=== PATIENT | female | born 1985 | race African-American/Black ===

== ENCOUNTER 2019-06-19 12:39 | Inpatient (IN) | payer BC ==
[~2019-06-19] VITALS: Ht 180.3 cm; Wt 74.8 kg
[2019-06-19 12:49] VITALS: BP 119/78
--- NOTE | 2019-06-19 12:57 | NUR ---
PT TAKEN TO BED 1.
--- NOTE | 2019-06-19 13:15 | NUR ---
DR. GUEVARA EVALUATING PT AT BEDSIDE.
--- NOTE | 2019-06-19 13:26 | NUR ---
C/O HEMMORHAGE X SATURDAY. PT REPORTS "GUSHING" BAUDILIO RED BLOOD, WITH FOUL SMELL AND CLOTS, 1 PAD Q2 HOURS. + DIZZY AND FATIGUE. PT REPORTS THIS IS THE 3RD TIME SINCE ON 04/30/19. DENIES PAIN. PT STATES SHE WANTS SONOHISTAGRAM OR HYSTEROSCOPY. REFERRED HERE BY DR. BARCLAY (OB). MEDHX:LUPUS RX:IBUPROFEN 600MG, HYDROXYQU 400MG, ZOLOFT 50MG, VITAMINS, MICRONOR 0.35MG
[2019-06-19] MEDS ORDERED: NACL 0.9% 1,000 ML IV ONE (13:40)
--- NOTE | 2019-06-19 13:54 | NUR ---
LABS DRAWN AND HANDED TO [employer].
[2019-06-19 14:09] LABS: BASOPHILS % (AUTO) 1.2 % (0.0-2.0); EOSINOPHILS # (AUTO) 0.1 K/uL (0-0.4); HEMATOCRIT 33.5 % (36-48); HEMOGLOBIN 10.9 g/dL (12.0-16.0); LYMPHOCYTES # (AUTO) 1.4 K/uL (2.5-16.5); LYMPHOCYTES % (AUTO) 39.7 % (20.5-51.1); MEAN CORPUSCULAR HEMOGLOBIN 29 pg (27-31); MEAN CORPUSCULAR HGB CONC 33 g/dL (33-37); MEAN CORPUSCULAR VOLUME 89.8 fL (80-94); MONOCYTES # (AUTO) 0.5 K/uL (0.8-1.0); MONOCYTES % (AUTO) 14.4 % (1.7-9.3); NEUTROPHILS # (AUTO) 1.4 K/uL (1.8-7.7); NEUTROPHILS % (AUTO) 41.7 % (42.2-75.2); PLATELET COUNT (AUTO) 179 K/uL (140-450); RED BLOOD CELL COUNT(AUTO) 3.72 MIL/uL (4.20-5.40); RED CELL DISTRIBUTION WIDTH 14.4 % (11.6-13.7); WHITE BLOOD COUNT (AUTO) 3.5 K/uL (4.8-10.8)
[2019-06-19 14:28] LABS: PROTHROMBIN TIME 11.2 secs (10.8-13.4)
--- NOTE | 2019-06-19 14:42 | NUR ---
US TECH AT BEDSIDE.
[2019-06-19 15:04] LABS: ANION GAP 12.8 (8-16); CARBON DIOXIDE 27.1 mmol/L (21-32); CREATININE 1.3 mg/dL (0.6-1.3); POTASSIUM 3.9 mmol/L (3.5-5.1); TOTAL BILIRUBIN 0.7 mg/dL (0.0-1.0)
--- NOTE | 2019-06-19 15:04 | NUR ---
PT RESTING IN BED WITH FAMILY AT BEDSIDE. DENIES PAIN. VSS.
[2019-06-19 15:05] LABS: ALBUMIN 3.7 g/dL (3.4-5.0)
[2019-06-19] MEDS ORDERED: PREN-380 PO (15:52)
[2019-06-19] MEDS ORDERED: SERT50TA PO (15:52)
[2019-06-19] MEDS ORDERED: MICRONOR PO (15:53)
[2019-06-19] MEDS ORDERED: HYDR200T5 PO (15:55)
--- NOTE | 2019-06-19 16:02 | NUR ---
DR. BARCLAY SPEAKING WITH PATIENT AT BEDSIDE.
[2019-06-19] MEDS ORDERED: NACL 0.9% 1,000 ML IV SCH (16:34)
[2019-06-19] MEDS ORDERED: HYDROcodone/APAP 5/325 MG 1 TAB TAB PO PRN (16:35)
[2019-06-19] MEDS ORDERED: ACETAMINOPHEN 325 MG TAB PO PRN (16:35)
[2019-06-19] MEDS ORDERED: ZOLPIDEM 5 MG TAB PO PRN (16:35)
[2019-06-19] MEDS ORDERED: ONDANSETRON 4 MG/2 ML VIAL IM/IVP PRN (16:35)
[2019-06-19] MEDS ORDERED: DOCUSATE SODIUM 100 MG GELCAP PO PRN (16:35)
[2019-06-19 17:00] VITALS: BP 125/73
--- NOTE | 2019-06-19 17:00 | NUR ---
Patient will be admitted to care of DR. OSORIO. Admited to TELE. Will go to room 112B. Belongings list completed. Report to LOPEZ BERMUDEZ.
--- NOTE | 2019-06-19 17:00 | NUR ---
PATIENT ARRIVED FROM ER VIA WHEELCHAIR. AMBULATED FROM WHEELCHAIR TO [facility] BED WITH STEADY GAIT. AAO X 4. CALM, COOPERATIVE. SKIN INTACT. RESPIRATIONS EVEN, UNLABORED ON ROOM AIR. NO DISTRESS NOTED. DENIES PAIN. IV SIGHT INTACT AND PATENT. NO BLEEDING NOTED AT THIS TIME. ORIENTED PATIENT TO ROOM AND CALL LIGHT. REVIEWED PLAN OF CARE. PATIENT VERBALIZED UNDERSTANDING. SAFETY MEASURES IN PLACE. CALL LIGHT WITHIN REACH. WILL CONTINUE TO MONITOR.
[2019-06-19 17:36] LABS: FREE T4 (FREE THYROXINE) 1.02 ng/dL (0.76-1.46); MAGNESIUM 1.8 mg/dL (1.8-2.4); PHOSPHORUS 3.8 mg/dL (2.5-4.9); THYROID STIMULATING HORMONE 1.32 uIU/mL (0.34-3.74)
--- NOTE | 2019-06-19 18:00 | NUR ---
PATIENT SITTING IN BED EATING DINNER AND WATCHING TV. CONDITION UNCHANGED. NO DISTRESS NOTED. WILL CONTINUE TO MONITOR.
[2019-06-19 18:32] LABS: APPEARANCE,URINE CLEAR (CLEAR); BILIRUBIN,URINE NEGATIVE (NEGATIVE); BLOOD, URINE 2+ (NEGATIVE); COLOR,URINE OTHER (YELLOW); LEUKOCYTE ESTERASE ,URINE NEGATIVE (NEGATIVE); NITRITE, URINE NEGATIVE (NEGATIVE); UGLUCOSE NEGATIVE (NEGATIVE)
[2019-06-19 18:45] LABS: BARBITURATE, URINE NEG. ng/ml (NEG <=200); BENZODIAZEPINE, URINE NEG. ng/mL (NEG <=200); CANNABINOID, URINE NEG. ng/mL (NEG <=50); COCAINE, URINE NEG. ng/mL (NEG <=300); OPIATE, URINE NEG. ng/mL (NEG <=2000); PHENCYCLIDINE SCREEN,URINE NEG. ng/mL (NEG <=25)
[2019-06-19 19:06] LABS: RBC,URINE 0-5 /HPF (0-5); WBC,URINE NONE SEEN /HPF (0-5)
--- NOTE | 2019-06-19 19:15 | NUR ---
RECIEVED PT AAOX4 , NID , WITH MINIMAL BLEEDING AT THIS TIME , IV SITE INTACT AND PATENT , RELATIVES ON BEDSIDE , PLAN OF CARE DISCUSSED AND VERBALIZE UNDERSTANDING, ON SAFETY / FALL PREACAUTION PROTOCOL - CALL LIGHT WITHIN REACH. WILL CONT. TO MONITOR - CALL LIGHT WITHIN REACH.
--- NOTE | 2019-06-19 19:15 | NUR ---
GAVE REPORT TO FORMING AND ASSEMBLING SUPERVISOR NURSE FOR CONTINUITY OF CARE. PATIENT IN STABLE CONDITION.
[2019-06-19] MEDS ORDERED: HYDROXYCHLOROQUINE 200 MG TAB PO SCH (21:00)
[2019-06-19] MEDS: SERTRALINE 50 MG TAB PO SCH (21:00)
--- NOTE | 2019-06-19 22:00 | NUR ---
MADE ROUNDS , NO SIGNS OF DISTRESS NOTED , MIN. VAG BLEEDING , WILL CONT. TO MONITOR.
[2019-06-19] MEDS ORDERED: KETOROLAC 30 MG/ML VIAL IM ONE (22:55)
[2019-06-19] MEDS: DEXT 5% /NACL 0.9% 1,000 ML IV SCH (22:55)
[2019-06-19] MEDS ORDERED: KETOROLAC 15 MG/ML VIAL IM SCH (23:30)
[2019-06-19] MEDS ORDERED: KETOROLAC 15 MG/ML VIAL IVP SCH (23:30)
[2019-06-19] MEDS: HYDROXYCHLOROQUINE 200 MG TAB PO SCH (23:36)
[2019-06-20] VITALS: BP 110/60
--- NOTE | 2019-06-20 | NUR ---
MADE ROUNDS , NO SIGNS OF DISTRESS NOTED AT THIS TIME , CALL LIGHT WITHIN REACH
[2019-06-20] MEDS: DEXT 5% /NACL 0.9% 1,000 ML IV SCH ×2 (01:55→01:56)
[2019-06-20 05:49] LABS: BASOPHILS % (AUTO) 0.8 % (0.0-2.0); EOSINOPHILS # (AUTO) 0.1 K/uL (0-0.4); EOSINOPHILS % (AUTO) 3.5 % (0.0-4.0); HEMATOCRIT 31.2 % (36-48); HEMOGLOBIN 10.1 g/dL (12.0-16.0); LYMPHOCYTES # (AUTO) 1.5 K/uL (2.5-16.5); LYMPHOCYTES % (AUTO) 41.7 % (20.5-51.1); MEAN CORPUSCULAR HEMOGLOBIN 29 pg (27-31); MEAN CORPUSCULAR HGB CONC 32 g/dL (33-37); MONOCYTES # (AUTO) 0.5 K/uL (0.8-1.0); NEUTROPHILS # (AUTO) 1.4 K/uL (1.8-7.7); PLATELET COUNT (AUTO) 161 K/uL (140-450); RED BLOOD CELL COUNT(AUTO) 3.46 MIL/uL (4.20-5.40); RED CELL DISTRIBUTION WIDTH 14.3 % (11.6-13.7); WHITE BLOOD COUNT (AUTO) 3.6 K/uL (4.8-10.8)
[2019-06-20 06:40] LABS: ANION GAP 12.6 (8-16); CARBON DIOXIDE 24.1 mmol/L (21-32); CREATININE 1.2 mg/dL (0.6-1.3); POTASSIUM 3.7 mmol/L (3.5-5.1)
[2019-06-20 06:46] LABS: MAGNESIUM 1.6 mg/dL (1.8-2.4); PHOSPHORUS 3.9 mg/dL (2.5-4.9)
[2019-06-20 06:47] LABS: CHOL/HDL RATIO 2.2 (1-4.5)
--- NOTE | 2019-06-20 07:05 | NUR ---
PT RECEIVED FROM NIGHT RNEVERETT. PT IN BED. AAOX4. IV TO R FOREARM RUNNING D5 1/2 NS AT 100 ML/HR. BREATHING EVEN AND UNLABORED. WILL CONTINUE TO ASSESS FOR CHANGES IN CONDITION.
[2019-06-20 08:00] VITALS: BP 110/70
--- NOTE | 2019-06-20 08:21 | NUR ---
PATIENT HAS BEEN SCREENED AND CATEGORIZED LOW NUTRITION RISK. PATIENT WILL BE SEEN WITHIN 7 DAYS OF ADMISSION. 06/25/[address]
[2019-06-20] MEDS ORDERED: MULTIVIT/MIN/CA/FE/FA 1 TAB PO SCH (09:00)
--- NOTE | 2019-06-20 09:21 | NUR ---
MO RECEIVED ORDERED VITAMIN. PT IN BED. NO SIGNS OF ACUTE DISTRESS AT THIS TIME. WILL CONTINUE TO ASSESS FOR CHANGES IN CONDITION.
--- NOTE | 2019-06-20 11:00 | NUR ---
PT IN BED. IV FLUIDS REPLACED. IV PATENT. NO SIGNS OF ACUTE DISTRESS AT THIS TIME. WILL CONTINUE TO ASSESS FOR CHANGES IN CONDITION.
--- NOTE | 2019-06-20 13:00 | NUR ---
LINENS CHANGES BECAUSE PT DROPPED BREAST MILK. PT IN BED. NO SIGNS OF ACUTE DISTRESS AT THIS TIME. WILL CONTINUE TO ASSESS FOR CHANGES IN CONDITION.
--- NOTE | 2019-06-20 13:30 | NUR ---
PT TAKEN TO PROCEDURE VIA BED WITH ARTHUR GIBSON FROM OR.
[2019-06-20 15:07] LABS: TRANSFERRIN 238 mg/dL (200-370)
[2019-06-20] MEDS ORDERED: DEXAMETHASONE 4 MG/ML VIAL IVP ONE (15:25)
[2019-06-20] MEDS ORDERED: DESFLURANE 240 ML BTL INH ONE (15:25)
[2019-06-20] MEDS ORDERED: ONDANSETRON 4 MG/2 ML VIAL IVP ONE (15:25)
[2019-06-20] MEDS ORDERED: fentaNYL 0.05 MG/ML VIAL ONE (15:27)
[2019-06-20 16:00] VITALS: BP 115/65
[2019-06-20] MEDS ORDERED: KETOROLAC 30 MG/ML VIAL IVP SCH (16:30)
--- NOTE | 2019-06-20 16:45 | NUR ---
PT RECEIVED FROM ARTHUR GIBSON, OPERATING ROOM NURSE. PT AAOX4. NO SIGNS OF ACUTE DISTRESS AT THIS TIME. POST-OP VITALS TRENDING WITH BASELINE.
--- NOTE | 2019-06-20 19:10 | NUR ---
PT ENDORSED TO NIGHT NURSE. PT IN BED. AAOX4. NO SIGNS OF ACUTE DISTRESS.
--- NOTE | 2019-06-20 19:11 | NUR ---
REPORT RECEIVED FROM AM NURSE AT BEDSIDE. PT IN STABLE CONDITION. AAOX4. INTRODUCED SELF TO PT. BOARD UPDATED. NO COMPLAINTS OF PAIN. NO SOB. AFEBRILE. PT IS AMBULATORY. IV SITE L FA 20G RUNNING D5NS@100ML/HR PATENT AND INTACT. SKIN WARM, DRY, AND INTACT WITH NO OPEN WOUNDS. BED LOCKED IN LOW POSITION. CALL CORRIGAN WITHIN REACH. SAFETY PRECAUTION IN PLACE. ALL NEEDS MET AT THIS TIME.
[2019-06-20] MEDS: SERTRALINE 50 MG TAB PO SCH (20:04)
[2019-06-20] MEDS: HYDROXYCHLOROQUINE 200 MG TAB PO SCH (20:04)
--- NOTE | 2019-06-20 20:04 | NUR ---
ZOLOFT AND PLAQUENIL GIVEN PO. PT TOLERATED WELL.
--- NOTE | 2019-06-20 21:30 | NUR ---
PT AWAKE AND ALERT IN BED WATCHING TV. NO S/S OF DISTRESS NOTED. WILL CONTINUE TO MONITOR.
[2019-06-20 21:33] VITALS: BP 98/47
--- NOTE | 2019-06-20 22:05 | NUR ---
WANTS PT TO BE D/C TO HOME. D/C PAPERWORK SIGNED.
--- NOTE | 2019-06-20 22:15 | NUR ---
PT D/C HOME. IV D/C. CANNULA INTACT. WRIST BANDS REMOVED.
[2019-06-23 06:07] LABS: FERRITIN 49 ng/mL (15-150); FOLIC ACID > 20.00 ng/mL (>3.0)
== END 2019-06-20 22:15 | disposition home or self-care (01) | DRG 745 ==
LOC: MED 12:39 → MTU 16:29
PROVIDERS: ADMIT Obstetrics & Gynecology; ATTEND Obstetrics & Gynecology
PROC: 0UDB8ZZ Extraction of Endometrium, Via Natural or Artificial Opening Endoscopic (ICD-10-PCS; principal; 2019-06-20 16:40)
DX: N93.8 Other specified abnormal uterine and vaginal bleeding (principal); M32.9 Systemic lupus erythematosus, unspecified; F32.9 Major depressive disorder, single episode, unspecified; Z88.5 Allergy status to narcotic agent
CPT/HCPCS: 36415; 71045; 76856; 80048; 80053; 80305; 81001; 81025; 82150; 82272; 82607; 82728; 82746; 83036; 83540; 83690; 83735; 83880; 84100; 84134; 84439; 84443; 84484; 84702; 85025; 85045; 85610; 85730; 87081; 96360; 99285; J1100; J1885; J2405; J3010; J7030; Q0092

== ENCOUNTER 2021-09-21 22:46 | Emergency (ER) | payer BC ==
[~2021-09-21] VITALS: Ht 182.9 cm; Wt 74.8 kg
[~2021-09-21 22:46] MED LIST: HYDR200T5 PO; MICRONOR PO; PREN-380 PO; SERT50TA PO
[2021-09-21 22:50] VITALS: BP 123/75
--- NOTE | 2021-09-21 22:53 | NUR ---
TO LOBBY A/W BED AMBULATORY
--- NOTE | 2021-09-21 23:02 | NUR ---
Dr. Monterroso examining patient.
--- NOTE | 2021-09-21 23:13 | NUR ---
pt ambulated to bed 11
--- NOTE | 2021-09-21 23:15 | NUR ---
RECEIVED IN BED 11 WITH C/O CP X 3 DAYS. DESCRIBES PAIN TIGHTNESS. PMH = LUPUS. SKIN IS WARM AND DRY
[2021-09-21] MEDS ORDERED: ASPIRIN 325 MG TAB PO ONE (23:30)
[2021-09-21] MEDS ORDERED: NITROGLYCERIN 0.4 MG TAB SL ONE (23:30)
[2021-09-21] MEDS ORDERED: PANTOPRAZOLE 40 MG TABEC PO ONE (23:30)
[2021-09-21 23:57] LABS: BASOPHILS % (AUTO) 0.8 % (0.0-2.0); EOSINOPHILS # (AUTO) 0.2 K/uL (0-0.4); HEMATOCRIT 33.6 % (36-48); HEMOGLOBIN 10.9 g/dL (12.0-16.0); LYMPHOCYTES % (AUTO) 36.5 % (20.5-51.1); MEAN CORPUSCULAR HEMOGLOBIN 27 pg (27-31); MEAN CORPUSCULAR HGB CONC 32 g/dL (33-37); MEAN CORPUSCULAR VOLUME 83.2 fL (80-94); MONOCYTES % (AUTO) 17.4 % (1.7-9.3); NEUTROPHILS # (AUTO) 2.3 K/uL (1.8-7.7); NEUTROPHILS % (AUTO) 41.3 % (42.2-75.2); PLATELET COUNT (AUTO) 190 K/uL (140-450); RED BLOOD CELL COUNT(AUTO) 4.04 MIL/uL (4.20-5.40); RED CELL DISTRIBUTION WIDTH 13.9 % (11.6-13.7); WHITE BLOOD COUNT (AUTO) 5.5 K/uL (4.8-10.8)
[2021-09-22 00:15] LABS: ALBUMIN 3.9 g/dL (3.4-5.0); ANION GAP 7.8 (8-16); CARBON DIOXIDE 27.9 mmol/L (21-32); CREATININE 1.2 mg/dL (0.6-1.3); POTASSIUM 3.7 mmol/L (3.5-5.1); TOTAL BILIRUBIN 0.4 mg/dL (0.0-1.0)
--- NOTE | 2021-09-22 01:31 | NUR ---
PT TAKEN TO RADIOLOGY
--- NOTE | 2021-09-22 01:49 | NUR ---
PT RETURN FROM CT
[2021-09-22] MEDS ORDERED: PANT20EC PO (04:04)
[2021-09-22 04:15] VITALS: BP 123/75
--- NOTE | 2021-09-22 04:15 | NUR ---
Patient discharged with v/s stable. Written and verbal after care instructions given and explained. Patient alert, oriented and verbalized understanding of instructions. Ambulatory with steady gait. All questions addressed prior to discharge. ID band removed. Patient advised to follow up with PMD. Rx of PROTONIX given. Patient educated on indication of medication including possible reaction and side effects. Opportunity to ask questions provided and answered.
== END 2021-09-22 04:15 | disposition home or self-care (01) ==
LOC: MED 22:46
DX: R07.89 Other chest pain (principal); R06.02 Shortness of breath; Z88.5 Allergy status to narcotic agent; Z79.899 Other long term (current) drug therapy
CPT/HCPCS: 36415; 71045; 71275; 80053; 84484; 84703; 85025; 85379; 93005; 99285; Q0092; Q9967

== ENCOUNTER 2021-12-13 13:30 | Emergency (ER) | payer BC ==
[~2021-12-13] VITALS: Ht 182.9 cm; Wt 76.9 kg
[~2021-12-13 13:30] MED LIST changes: +PANT20EC PO
[2021-12-13 13:44] VITALS: BP 98/57
--- NOTE | 2021-12-13 13:54 | NUR ---
PATIENT PROVIDED URINE SAMPLE AT THIS TIME.
--- NOTE | 2021-12-13 14:12 | NUR ---
DR. JOHNS EVALUATING PATIENT AT BEDSIDE.
[2021-12-13] MEDS ORDERED: NACL 0.9% 1,000 ML IV SCH (14:15)
[2021-12-13] MEDS ORDERED: ONDANSETRON 4 MG/2 ML VIAL IVP ONE (14:15)
[2021-12-13] MEDS ORDERED: KETOROLAC 30 MG/ML VIAL IVP ONE (14:15)
[2021-12-13 14:37] LABS: BASOPHILS % (AUTO) 0.9 % (0.0-2.0); EOSINOPHILS # (AUTO) 0.1 K/uL (0-0.4); EOSINOPHILS % (AUTO) 1.7 % (0.0-4.0); HEMATOCRIT 26.5 % (36-48); HEMOGLOBIN 8.6 g/dL (12.0-16.0); LYMPHOCYTES # (AUTO) 1.4 K/uL (2.5-16.5); LYMPHOCYTES % (AUTO) 27.7 % (20.5-51.1); MEAN CORPUSCULAR HEMOGLOBIN 26 pg (27-31); MEAN CORPUSCULAR HGB CONC 33 g/dL (33-37); MEAN CORPUSCULAR VOLUME 80.4 fL (80-94); MONOCYTES # (AUTO) 0.8 K/uL (0.8-1.0); NEUTROPHILS # (AUTO) 2.8 K/uL (1.8-7.7); NEUTROPHILS % (AUTO) 54.7 % (42.2-75.2); PLATELET COUNT (AUTO) 170 K/uL (140-450); RED BLOOD CELL COUNT(AUTO) 3.29 MIL/uL (4.20-5.40); RED CELL DISTRIBUTION WIDTH 15.5 % (11.6-13.7); WHITE BLOOD COUNT (AUTO) 5.2 K/uL (4.8-10.8)
--- NOTE | 2021-12-13 14:50 | NUR ---
PATIENT REFUSED IV INSERTION, DR. JOHNS MADE AWARE.
--- NOTE | 2021-12-13 14:53 | NUR ---
PATIENT TAKEN TO CT VIA SOREN
[2021-12-13 15:00] LABS: APPEARANCE,URINE CLEAR (CLEAR); BILIRUBIN,URINE NEGATIVE (NEGATIVE); BLOOD, URINE TRACE-L (NEGATIVE); COLOR,URINE YELLOW (YELLOW); LEUKOCYTE ESTERASE ,URINE NEGATIVE (NEGATIVE); NITRITE, URINE NEGATIVE (NEGATIVE); PH,URINE 5.5 (5.0-9.0); UGLUCOSE NEGATIVE (NEGATIVE)
[2021-12-13 15:16] LABS: ALBUMIN 3.7 g/dL (3.4-5.0); ANION GAP 13.1 (8-16); CARBON DIOXIDE 25.7 mmol/L (21-32); POTASSIUM 3.8 mmol/L (3.5-5.1); TOTAL BILIRUBIN 0.8 mg/dL (0.0-1.0)
[2021-12-13] MEDS: KETOROLAC 60 MG/2 ML VIAL IM ONE (15:21)
[2021-12-13] MEDS: ONDANSETRON 4 MG ODT PO ONE (15:22)
[2021-12-13 15:27] LABS: RBC,URINE 0-5 /HPF (0-5); WBC,URINE NONE SEEN /HPF (0-5)
--- NOTE | 2021-12-13 15:44 | NUR ---
DR JOHNS REEVALUATING PATIENT AT BEDSIDE.
[2021-12-13] MEDS ORDERED: IBUP-2213 PO (15:56)
[2021-12-13] MEDS ORDERED: ACET-5629 PO (15:56)
[2021-12-13] MEDS ORDERED: ONDA8TAB87 PO (15:56)
[2021-12-13 16:14] VITALS: BP 110/62
--- NOTE | 2021-12-13 16:14 | NUR ---
Patient discharged with v/s stable. Written and verbal after care instructions ABOUT NAUSEA, ABDOMINAL PAIN given and explained. Patient alert, oriented and verbalized understanding of instructions. Ambulatory with steady gait. All questions addressed prior to discharge. ID band removed. Patient advised to follow up with PMD. Rx of PERCOCET 5-325MG, IBUPROFEN AND ZOFRAN given.
== END 2021-12-13 16:14 | disposition home or self-care (01) ==
LOC: MED 13:30
DX: R10.30 Lower abdominal pain, unspecified (principal); R11.0 Nausea; R63.0 Anorexia; Z79.899 Other long term (current) drug therapy; Z98.890 Other specified postprocedural states; Z88.5 Allergy status to narcotic agent; Z88.8 Allergy status to other drugs, medicaments and biological substances; Z88.6 Allergy status to analgesic agent
CPT/HCPCS: 36415; 74176; 80053; 81001; 81025; 83690; 85025; 96372; 99285; J1885; Q0162; J2405